=== PATIENT | female | born 1935 | race Caucasian/White ===

== ENCOUNTER 2016-06-02 10:23 | Day surgery (SDC) | payer MEDICARE, OTHER ==
[~2016-06-02] VITALS: Ht 165.1 cm; Wt 65.0 kg
[~2016-06-02 10:23] MED LIST: SODIUM CHLORIDE 0.9% 1,000 ML IV ONE
[2016-06-02] MEDS ORDERED: SODIUM CHLORIDE 0.9% 1,000 ML IV ONE (10:30)
[2016-06-02] MEDS ORDERED: DSS100 PO (10:58)
[2016-06-02] MEDS ORDERED: LOVA20 PO (10:58)
[2016-06-02] MEDS ORDERED: HYDR25 PO (10:58)
[2016-06-02] MEDS ORDERED: ONDA4 PO (10:58)
[2016-06-02] MEDS ORDERED: LEVO25TA9 PO (10:58)
[2016-06-02] MEDS ORDERED: OXYC10 PO (10:58)
[2016-06-02] MEDS ORDERED: MOM30 PO (10:58)
[2016-06-02] MEDS ORDERED: BISA10S PR (10:58)
[2016-06-02] MEDS ORDERED: MULT-71 PO (10:58)
[2016-06-02] MEDS ORDERED: ACET-784 PO (10:58)
[2016-06-02] MEDS ORDERED: MIRALAX PO (10:58)
[2016-06-02] MEDS ORDERED: POLY15DR16 OP (10:58)
[2016-06-02] MEDS ORDERED: OMEP20 PO (10:58)
[2016-06-02] MEDS ORDERED: TRAZ-144 PO (10:58)
[2016-06-02] MEDS ORDERED: MIDAZOLAM HCL 5 MG/ML VIAL ONE (12:50)
[2016-06-02] MEDS ORDERED: FentaNYL CITRATE-PF 100 MCG/2 ML VIAL ONE (12:50)
[2016-06-02] MEDS ORDERED: BACITRACIN 0.9 GM PACKET OINTMENT TP STA (13:38)
== END 2016-06-02 15:10 | disposition home or self-care (01) ==
LOC: SURGERY 10:23
PROVIDERS: ATTEND Internal Medicine Gastroenterology
DX: K29.70 Gastritis, unspecified, without bleeding (principal); I12.9 Hypertensive chronic kidney disease with stage 1 through stage 4 chronic kidney disease, or unspecified chronic kidney disease; N18.3 Chronic kidney disease, stage 3 (moderate); J30.9 Allergic rhinitis, unspecified; E78.5 Hyperlipidemia, unspecified; E03.9 Hypothyroidism, unspecified; M17.9 Osteoarthritis of knee, unspecified; K64.4 Residual hemorrhoidal skin tags; Z87.01 Personal history of pneumonia (recurrent); Z90.710 Acquired absence of both cervix and uterus; Z90.722 Acquired absence of ovaries, bilateral; Z98.890 Other specified postprocedural states
CPT/HCPCS: 43239; 43247; J2250; J3010; J7030; 88305; 88312